=== PATIENT | male | born 1935 | race Caucasian/White ===

== ENCOUNTER → 2019-04-16 10:33 | Outpatient (CLI) | payer OTHER, SELFPAY ==
--- NOTE | 2019-04-16 | DI.MRI.S_ITS ---
PROCEDURE: MR SHOULDER LT WO CON INDICATIONS: shoulder pain TECHNIQUE: Noncontrast oblique coronal T2 fast spin echo with fat saturation, oblique sagittal T1 spin echo and T2 fast spin echo with fat saturation, axial T1 spin echo and T2 fast spin echo with fat saturation through the shoulder. COMPARISON: [facility] [place], CR, XR SHOULDER 2+ VIEWS LEFT, 04/06/2019, 9:39. FINDINGS: Image quality: Diagnostic. Rotator cuff: There is a moderate size full thickness tear present involving the distal supraspinatus tendon that involves the majority of the tendon. This tear measures at least 2.6 cm in transverse dimension with retraction of the torn tendon fragments by up to 1.8 cm. A small amount (approximately 6 mm) of the tendon remains attached to the greater tuberosity. A few intact fibers of the posterior distal supraspinatus tendon are present. There is thickening and increased signal identified involving the infraspinatus tendon. The teres minor tendon is intact. There is thickening and increased signal evident along the articular surface of the distal subscapularis tendon. Mild muscle atrophy is present involving the supraspinatus, infraspinatus, and subscapularis muscles. No significant teres minor muscle atrophy is appreciated. Bones and bursae: No acute fracture, dislocation, or suspicious osseous lesion is identified involving the osseous structures of the left shoulder. There are mild to moderate degenerative changes of the glenohumeral joint. There is a large glenohumeral joint effusion that communicates with the subacromial subdeltoid bursa. Severe degenerative changes of the acromio clavicular joint are present. No definite intra-articular joint bodies of the glenohumeral joint are appreciated. Capsule and soft tissues: Evaluation of the labrum and glenohumeral ligaments is suboptimal without intra-articular contrast. There likely is a small posterosuperior labral tear extending from the 12 o'clock position to the 2 o'clock position. Additional areas of labral heterogeneity are present. The long head of the biceps tendon is normally positioned within the bicipital groove. There is thickening and increased signal involving the intra-articular portion of this tendon as it passes over the humeral head. Evaluation of the glenohumeral ligaments is suboptimal. No definite complete tears are evident. There is slight edema about the inferior glenohumeral ligament. IMPRESSION: 1. Moderate size full thickness supraspinatus tendon tear. 2. Low-grade partial-thickness tearing and moderate tendinopathy of the subscapularis and infraspinatus tendons. 3. Mild atrophy of the rotator cuff muscles. 4. Small posterosuperior labral tear. 5. Moderate tendinopathy with possible intrasubstance partial-thickness tearing involving the long head of the biceps tendon. 6. Probable inferior glenohumeral ligament sprain. 7. Severe degenerative changes of the acromioclavicular joint. 8. Mild to moderate degenerative changes of the glenohumeral joint. 9. Prominent glenohumeral joint effusion. Dictated by: Jesus Pat M.D. on 04/18/2019 at 9:28 Approved by: Jesus Pat M.D. on 04/18/2019 at 9:33
== END ==
PROVIDERS: Visit Provider Orthopaedic Surgery
DX: M25.512 Pain in left shoulder (principal); M75.122 Complete rotator cuff tear or rupture of left shoulder, not specified as traumatic; M62.512 Muscle wasting and atrophy, not elsewhere classified, left shoulder; S43.492A Other sprain of left shoulder joint, initial encounter; M19.012 Primary osteoarthritis, left shoulder; M25.412 Effusion, left shoulder
CPT/HCPCS: 73221

== ENCOUNTER → 2020-10-04 09:45 | Outpatient (CLI) | payer MEDICARE, SELFPAY ==
[2020-10-04] MEDS: COVID-19 VACC, Ad26(JANSSEN)/PF 0.5 ML IM (09:52)
== END ==
PROVIDERS: Visit Provider Internal Medicine
DX: Z23 Encounter for immunization (principal)
CPT/HCPCS: 0031A; 91303

== ENCOUNTER → 2020-10-05 13:49 | Outpatient (CLI) | payer MEDICARE, SELFPAY ==
[2020-10-05 14:09] LABS: Add Manual Diff / Slide Review NO; Basophils Absolute Auto 0 /uL (0-100); Basophils Percent Auto 0.6 % (0-2); Eosinophils Absolute Auto 100 /uL (0-450); Eosinophils Percent Auto 4.2 % (2-4); Hematocrit 40.6 % (41-53); Hemoglobin 13.9 g/dL (13.5-17.5); Lymphocytes Absolute Auto 700 /uL (1100-4500); Lymphocytes Percent Auto 19.1 % (25-40); Mean Corpuscular HGB Conc 34.3 % (30-36); Mean Corpuscular Hemoglobin 31.9 PG (26-34); Monocytes Absolute Auto 600 /uL (0-900); Monocytes Percent Auto 15.9 % (3-14); Neutrophils Absolute Auto 2100 /uL (1500-7000); Neutrophils Percent Auto 60.2 % (50-75); Platelet Count 191 X10^3/uL (150-400); Red Blood Cell Count 4.37 X10^6/uL (4.5-5.9); Red Cell Distribution Width 13.5 % (11.6-14.8); White Blood Cell Count 3.6 X10^3/uL (4.5-11.0)
[2020-10-05 14:21] LABS: Alanine Aminotransferase 18 IU/L (<50); Albumin 4.2 g/dL (3.5-5.0); Albumin Globulin Ratio 1.7 (1.0-2.8); Alkaline Phosphatase 55 U/L (38-126); Aspartate Aminotransferase 23 IU/L (17-59); BUN Creatinine Ratio 20.5 (6-22); Bilirubin Total 0.5 mg/dL (0.2-1.3); Blood Urea Nitrogen 17 mg/dL (9-20); Calcium 9.6 mg/dL (8.4-10.2); Carbon Dioxide 27 mmol/L (22-32); Chloride 104 mmol/L (98-107); Estimated Glomerular Filt Rate > 60.0 mL/min (>60); Globulin 2.5 g/dL (1.7-4.1); Glucose 94 mg/dL (80-110); HEMOLYSIS < 15 (0-50); Magnesium 1.9 mg/dL (1.6-2.3); Potassium 3.9 mmol/L (3.4-5.1); Sodium 138 mmol/L (137-145); Total Protein 6.7 g/dL (6.3-8.2)
[2020-10-05 14:51] LABS: TSH w/ Reflex to FT4 1.04 uIU/mL (0.47-4.68)
== END ==
PROVIDERS: Referring Provider Internal Medicine; Visit Provider Internal Medicine
DX: I10 Essential (primary) hypertension (principal); R00.2 Palpitations
CPT/HCPCS: 36415; 80053; 83735; 84443; 85025

== ENCOUNTER 2020-10-21 10:23 | Emergency (ER) | payer MEDICARE, SELFPAY ==
--- NOTE | 2020-10-21 10:40 | DI.RAD.S_ITS ---
PROCEDURE: XR FINGER LT MIN 2V INDICATIONS: table saw accident TECHNIQUE: AP hand, 2 views of the left finger(s) acquired. COMPARISON: None. FINDINGS: Bones: Partial amputation of the distal phalanx of the thumb with associated soft tissue laceration and swelling, edema. 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 Possible punctate radiopaque debris or foreign bodies although recommend clinical correlation. Diffuse interphalangeal degenerative joint disease. IMPRESSION: Partial amputation of the distal phalanx of the thumb. Associated soft tissue swelling. Possible punctate radiopaque debris/foreign bodies although recommend clinical correlation. Dictated by: Juan Zuniga M.D. on 10/21/2020 at 11:02 Approved by: Juan Zuniga M.D. on 10/21/2020 at 11:04
[2020-10-21 10:42] VITALS: BP 143/104; PULSE 85; RESP 24; TEMP 37.1; O2SAT 98; BMI 26.5
--- NOTE | 2020-10-21 10:44 | ED_ITS ---
HPI - Wound/Laceration General Chief Complaint: Trauma Stated Complaint: left thumb wound from table saw Time Seen by Provider: 10/21/20 10:30 Source: patient Mode of arrival: Ambulatory Limitations: no limitations History of Present Illness HPI narrative: Patient is an 85-year-old male who is here for evaluation of an injury that he sustained to his left thumb. He is right-hand dominant. He states he was making a picture frame when he cut his thumb on the table saw. He placed the tip of the thumb in ice and came to the emergency department. He did cover with a bandage. He states that his last tetanus shot was within the past 10 years. Related Data Previous Rx's Medication Instructions Recorded cephalexin 500 mg PO QID 7 Days #28 cap 10/21/20 hydrocodone-acetaminophen 1 tab PO Q4-6H PRN #7 tab 10/21/20 Allergies Allergy/AdvReac Type Severity Reaction Status Date / Time No Known Drug Allergies Allergy Verified 10/21/20 10:49 Review of Systems Constitutional Constitutional: Denies headache(s) Eyes Eyes: Denies change in vision ENT Ears, Nose, Mouth, and Throat: Denies headache(s) and Denies sore throat Cardiovascular Cardiovascular: Denies chest pain and Denies dyspnea Respiratory Respiratory: Denies dyspnea Gastrointestinal Gastrointestinal: Denies abdominal pain Musculoskeletal Comments: Left thumb pain Integumentary/Breasts Comments: Cut to left thumb Neurologic Neurologic: Denies headache(s) Comments: Some tingling to the tip of the left thumb Hematologic/Lymphatic On Anticoagulants: No Allergic/Immunologic Allergic/Immunologic: Denies urticaria Patient History Medical History Hypertension Social History Smoking Status: Former smoker Exam Initial Vital Signs Initial Vital Signs: Vital Signs Temperature 98.8 F 10/21/20 10:42 Pulse Rate 85 10/21/20 10:42 Respiratory Rate 24 10/21/20 10:42 Blood Pressure 143/104 H 10/21/20 10:42 Pulse Oximetry 98 10/21/20 10:42 Const General: cooperative, healthy appearing and comfortable Limitations: mental status not altered HENMT Head: normal to inspection and normocephalic Eyes General: appearance normal, both eyes and all related structures Resp Effort & Inspection: normal respiratory effort Cardio Pulses: radial pulses present on the left GI Palpation: soft Skin Other: Patient with avulsion of the skin on the dorsum of the left thumb. It starts just distal to the IP joint and does extend past the tip of the thumb. The entire thumb nail is avulsed. The nail bed is also vault. There is no bone exposure. Neuro Other: Patient does have sensation to the pad of the left thumb Extrem Other: Patient can flex and extend at the IP joint to the left thumb Psych Appearance: grossly normal and well kempt Procedures Orthopedic Splinting/Casting Injury #1: Side: left Upper Extremity Injury Location: finger Upper Extremity Immobilizer: aluminum form splint Post splinting neuro exam: no change Post splinting vascular exam: no change Placed by: Provider Course Orders Ordered: ED Orders 10/21/20 10:40 XR finger LT min 2V Stat Vital Signs Vital signs: Vital Signs - 8 hr 10/21/20 10:42 10/21/20 10:51 10/21/20 10:52 Temperature 98.8 F Pulse Rate 85 83 83 Respiratory Rate 24 Blood Pressure 143/104 H 175/87 H 171/88 H Pulse Oximetry 98 98 98 10/21/20 11:00 10/21/20 11:30 10/21/20 12:03 Temperature Pulse Rate 79 78 74 Respiratory Rate 12 17 14 Blood Pressure 164/88 H 156/87 H 148/89 H Pulse Oximetry 96 96 97 MDM - Wound/Laceration Imaging Data Extremity x-ray #1: Radiologist's Impression: [address] [id number] ReportSigned Patient: Garrison Guardado DeanMR#: [id number]: [id number]:[id number]/Sex: 85 / MDate of Service: 10/21/20Loc: EDAccession Number: [id number] Procedure: XR finger LT min 2V Ordering Provider: Jefe Moise D.O. PROCEDURE: XR FINGER LT MIN 2V INDICATIONS: table saw accident TECHNIQUE: AP hand, 2 views of the left finger(s) acquired. COMPARISON: None. FINDINGS: Bones: Partial amputation of the distal phalanx of the thumb with associated soft tissue laceration and swelling, edema. 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 Possible punctate radiopaque debris or foreign bodies although recommend clinical correlation. Diffuse interphalangeal degenerative joint disease. IMPRESSION: Partial amputation of the distal phalanx of the thumb. Associated soft tissue swelling. Possible punctate radiopaque debris/foreign bodies although recommend clinical correlation. Dictated by: Juan Zuniga M.D. on 10/21/2020 at 11:02 Approved by: Juan Zuniga M.D. on 10/21/2020 at 11:04 [facility] Narrative Medical decision making narrative: Modified trauma called secondary to the table saw injury. He is missing the dorsum of his left thumb just distal to the IP joint to the tip. X-ray does show that he did cut some of the bone. There is no bone exposed. Unfortunately the wound is not amenable to suturing here in the ER. Was covered with Vaseline gauze. He was placed in a splint for soft tissue rest. He was informed that this would heal but he would have an abnormal looking thumb compared to the right and he will no longer have a thumb nail on that side. He was given the information to follow-up with orthopedics. Will start on antibiotics as well. He was given return precautions and follow-up instructions. He expressed understanding and agreement. Discharge Plan Departure Patient Disposition: Home Clinical Impression: Traumatic amputation of tip of left thumb Instructions: DI for Traumatic Finger or Hand Amputation Activity Restrictions/Additional Instructions: I do recommend that tomorrow you contact the [facility] group at [phone]. Until then I recommend that you keep the splint and bandage on. I recommend that you contact your primary doctor for follow-up. Take the antibiotics as directed. Return to the emergency department for any new or worsening symptoms Prescriptions: New cephalexin 500 mg capsule 500 mg PO QID 7 Days Qty: 28 RF: 0 hydrocodone-acetaminophen 5-325 mg tablet 1 tab PO Q4-6H PRN (Reason: pain) Qty: 7 RF: 0 Referrals: Jamel Joy MD [Primary Care Provider] -
[2020-10-21 10:51] VITALS: BP 175/87; PULSE 83; O2SAT 98
[2020-10-21 10:52] VITALS: BP 171/88; PULSE 83; O2SAT 98
[2020-10-21 11:00] VITALS: BP 164/88; PULSE 79; RESP 12; O2SAT 96
[2020-10-21 11:30] VITALS: BP 156/87; PULSE 78; RESP 17; O2SAT 96
--- NOTE | 2020-10-21 11:38 | PC.NURSE ---
patient was using table saw and partially amputated his left thumb. The nail bed and nail are missing and there is a 3 cm circular wound involving the distal tip of his distal phalange. The wound is hemostatic and was wrapped with xeroform gauze, 4x4 and roll gauze with tape. There is a splint under his finger to immobilize his thumb.
[2020-10-21 12:03] VITALS: BP 148/89; PULSE 74; RESP 14; O2SAT 97
== END 2020-10-21 12:06 | disposition home or self-care (01) ==
PROVIDERS: Emergency Provider Emergency Medicine; PCP Internal Medicine
DX: S68.012A Complete traumatic metacarpophalangeal amputation of left thumb, initial encounter (principal); W29.3XXA Contact with powered garden and outdoor hand tools and machinery, initial encounter
CPT/HCPCS: 73140; 99283

== ENCOUNTER → 2021-10-01 15:03 | Outpatient (CLI) | payer MEDICARE, SELFPAY ==
--- NOTE | 2021-10-01 15:06 | DI.RAD.S_ITS ---
PROCEDURE: XR CHEST 2V INDICATIONS: RT RIB PAIN, CHEST TECHNIQUE: 2 views of the chest were acquired. COMPARISON: None. FINDINGS: Surgical changes and devices: None. Lungs and pleura: Lungs are clear. No pleural effusions or pneumothorax. Mediastinum: Mediastinal contours are normal. Heart size is normal. Bones and chest wall: No suspicious bony abnormalities. Soft tissues appear unremarkable. IMPRESSION: No acute cardiopulmonary findings. No fracture or pneumothorax. Dictated by: Sawyer Renee M.D. on 10/01/2021 at 15:58 Approved by: Sawyer Renee M.D. on 10/01/2021 at 16:18
== END ==
PROVIDERS: PCP Internal Medicine; Referring Provider Family Medicine; Visit Provider Family Medicine
DX: R07.81 Pleurodynia (principal)
CPT/HCPCS: 71046

== ENCOUNTER → 2021-11-21 07:46 | Outpatient (CLI) | payer MEDICARE, SELFPAY ==
--- NOTE | 2021-11-21 | DI.ECHO.S_ITS ---
[facility]---------+ [facility] +---------+ : : [address] : : : : [id number] : : : : Phone: [phone]+ Echocardiogram Report + + :Name: DIANE GONZALEZ Study Date: 11/21/2021 Height: 70 in : :[facility] ReadingLocation: Weight: 185 lb : : Gender: Male BSA: 2.0 m2 : :: 1935 Age: 86 yrs BP: 149/82 mmHg: :Reason For Study: Murmur : :Ordering Physician: CAROL, : :EDUARDO Barriga Performed By: Panfilo Wise : :Referring: EDUARDO MEDINA : + + Interpretation Summary 1) Normal left ventricular thickness, size, wall motion, and systolic function (EF 60-65%). 2) Normal right ventricular size and function. 3) No significant valvular abnormalities. 4) No prior Echo available for comparison. Procedure: A two-dimensional transthoracic echocardiogram with color flow and Doppler was performed. The study quality was technically adequate. There is no prior echocardiogram noted for this patient. Left Ventricle: The left ventricle is normal in size and wall thickness. Left ventricular systolic function is normal. The ejection fraction is estimated to be 60-65%. There are no focal wall motion abnormalities. Diastolic parameters suggest a relaxation abnormality of the left ventricle, consistent with probable normal filling pressures. Right Ventricle: The right ventricle is normal in size and function. Atria: Both atria are normal in size. The interatrial septum grossly appears intact with no obvious evidence for an atrial septal defect. Mitral Valve: There is mild mitral annular calcification. There is trace mitral regurgitation. Aortic Valve: The aortic valve is normal in structure and function. There is no aortic valve stenosis. There is trace aortic regurgitation. Tricuspid Valve: The tricuspid valve is normal in structure and function. There is a trace or physiologic amount of tricuspid regurgitation. Pulmonary artery pressures cannot be estimated because of the lack of a measurable TR jet velocity. Pulmonic Valve: The pulmonic valve is normal in structure and function. There is no pulmonic valvular regurgitation. Great Vessels: The aortic root is normal size. The dimensions of the ascending aorta are normal. The IVC is of normal diameter and collapses greater than 50% with a sniff. This suggests a low right atrial pressure of 3 mm Hg. Pericardium/ Pleura There is no pericardial effusion. There is no pleural effusion. MMode/2D Measurements & Calculations LVIDd: 4.3 cm LVOT diam: 2.1 cm LVIDs: 3.0 cm Ao root diam: 3.5 cm FS: 30.2 % asc Aorta Diam: 3.4 cm IVSd: 1.1 cm LVPWd: 0.90 cm LV rowell. diameter/BSA (cm/m^2): 2.1 LV sys. diameter/BSA (cm/m^2): 1.5 LA dimension: 2.9 cm RA long axis: 6.0 cm LA A2 area: 22.6 cm2 IVC diam: 1.7 cm LA A4 area: 20.5 cm2 LA length (vol): 5.8 cm LA vol: 67.8 ml LA vol index: 33.6 ml/m2 TAPSE_phl: 2.8 cm Doppler Measurements & Calculations Ao V2 max: 134.0 cm/sec LVOT Max Mike: 137.0 cm/sec Ao V2 mean: 97.1 cm/sec LV V1 max P.5 mmHg Ao max P.0 mmHg LV V1 VTI: 31.3 cm Ao mean P.0 mmHg JOZEF(I,D): 3.7 cm2 Ao V2 VTI: 29.5 cm JOZEF(V,D): 3.5 cm2 sev ratio: 1.1 JOZEF indexed to BSA (cm^2/m^2): 1.8 MV E max mike: 102.0 cm/sec SV(LVOT): 108.4 ml MV A max mike: 116.0 cm/sec MV E/A: 0.88 Med Peak E' Mike: 8.5 cm/sec E/E' med: 12.0 Lat Peak E' Mike: 7.5 cm/sec E/E' lat: 13.5 E/e' average: 12.8 MV dec time: 0.21 sec AV VR_phl: 1.0 MV P1/2t-pr_phl: 62.0 msec JOZEF(VTI)/BSA_phl: 1.8 Reading Physician:01:12 PM
== END ==
PROVIDERS: PCP Internal Medicine; Referring Provider Internal Medicine; Visit Provider Internal Medicine
DX: R01.1 Cardiac murmur, unspecified (principal)
CPT/HCPCS: 93306

== ENCOUNTER 2021-12-27 17:22 | Emergency (ER) | payer MEDICARE, SELFPAY ==
[2021-12-27 17:42] VITALS: BP 175/89; PULSE 100; RESP 18; TEMP 36.7; O2SAT 99; BMI 29.2
[2021-12-27 17:55] VITALS: PULSE 104; O2SAT 99
[2021-12-27 18:00] VITALS: BP 176/89; PULSE 99; O2SAT 99
--- NOTE | 2021-12-27 18:20 | ED.GENADULT ---
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 He also has a significant love of fishing [place] and while using Phenergan and Sudafed seeing found that he was unable to void. He has gone over 48 hours without voiding and is in significant pain. Comes in for further evaluation Related Data Previous Rx's Medication Instructions Recorded hydrocodone 5 mg-acetaminophen 325 1 tab PO Q4-6H PRN pain #7 tabs 10/21/20 mg tablet ondansetron 4 mg disintegrating 4 mg PO Q8H PRN sea sickness #20 12/27/21 tablet tabs Allergies Allergy/AdvReac Type Severity Reaction Status Date / Time No Known Drug Allergies Allergy Verified 10/21/20 10:49 Review of Systems Review of Systems Narrative: Remainder of complete review of systems is otherwise unremarkable except for that included in the HPI. Patient History Medical History (Updated 12/27/21 @ 19:10 by Jonelle Conn MD) BPH (benign prostatic hyperplasia) Hypertension Social History Smoking Status: Former smoker Smoking Status: Former smoker alcohol intake frequency: 0-2 drinks per day Substance Use Type: does not use Exam Initial Vital Signs Initial Vital Signs: Vital Signs Temperature 98.1 F 12/27/21 17:42 Pulse Rate 100 H 12/27/21 17:42 Respiratory Rate 18 12/27/21 17:42 Blood Pressure 175/89 H 12/27/21 17:42 Pulse Oximetry 99 12/27/21 17:42 Oxygen Delivery Method 12/27/21 17:42 General: Alert appropriate in no acute distress Respiratory: Able to speak in full sentences, no obvious respiratory distress Skin: No obvious rashes, warm and dry Neurologic: Grossly intact no obvious asymmetries or abnormalities Psych: appropriate insight and affect, cooperative Bryan catheter is placed by nursing staff without complication with 3 L immediately drained. Pale yellow no blood. Significant relief of pain post drainage. Course Orders Ordered: ED Orders 12/27/21 18:05 Urinalysis and Microscopic Stat Discontinued Medications Lidocaine HCl (Lidocaine 2% (Glydo) 6 Ml Gel) 6 ml TOP NOW ONE Stop: 12/27/21 17:51 Ondansetron HCl (Ondansetron 4 Mg Odt) 4 mg SL NOW ONE Stop: 12/27/21 18:53 Last Admin: 12/27/21 19:04 Dose: 4 mg Tamsulosin HCl (Tamsulosin 0.4 Mg Capsule) 0.4 mg PO NOW ONE Stop: 12/27/21 18:59 Last Admin: 12/27/21 19:04 Dose: 0.4 mg Vital Signs Vital signs: Vital Signs - 8 hr 12/27/21 17:42 12/27/21 17:55 12/27/21 18:00 Temperature 98.1 F Pulse Rate 100 H 104 H Respiratory Rate 18 Blood Pressure 175/89 H 176/89 H Pulse Oximetry 99 99 Oxygen Delivery Method Room Air 12/27/21 18:00 12/27/21 18:30 12/27/21 18:30 Temperature Pulse Rate 99 H 96 H Respiratory Rate Blood Pressure 145/95 H Pulse Oximetry 99 97 Oxygen Delivery Method 12/27/21 19:01 12/27/21 19:02 12/27/21 19:02 Temperature Pulse Rate 100 H Respiratory Rate Blood Pressure 114/79 Pulse Oximetry 97 98 Oxygen Delivery Method Medical Decision Making Lab Data Labs: Lab Results 12/27/21 Range/Units 18:05 Urine Color Yellow Urine Appearance Clear Urine pH 5.0 (4.5-8.0) Ur Specific [place] 1.010 (1.000-1.035) Urine Protein Negative (Negative) Urine Glucose (UA) Trace H (Negative) g/dL Urine Ketones Trace H (NEGATIVE) Urine Occult Blood Negative (Negative) Urine Nitrate Negative (Negative) Urine Bilirubin Negative (NEGATIVE) Urine Urobilinogen 0.2 (0.2) E.U./dL Ur Leukocyte Esterase Negative (NEGATIVE) Urine RBC 1-5/hpf (0-5/HPF) Urine WBC 0-1/hpf (0-5/HPF) Urine Bacteria None seen (None) Ur Culture Indicated? Cult not indicated MDM Narrative Medical decision making narrative: 86-year-old gentleman with already worsening bladder outlet obstruction symptoms with exacerbation using Sudafed for seasickness. Bryan catheter is placed without difficulty. Recommended Zofran to help with sea sickness and counseled against any [id number] antihistamines or Sudafed as this does have urinary retention as complications. Also advised him to avoid scopolamine patches should that be suggested for him. He does have essential hypertension and has not taken his medications yet today. Blood pressure was dramatically elevated on arrival in significantly improved once his bladder was drained. Recommended that he start the Flomax that has been prescribed and is available for pickup and suggesting taking the Bryan catheter out in approximately 4 days. Encouraged him to return to the ER if he has worsening difficulties. Bryan catheter instructions and a leg bag are provided by nursing staff. Questions are answered he is safe for home discharge Discharge Plan Departure Patient Disposition: Home Clinical Impression: Acute retention of urine Instructions: DI for Urinary Retention in Men Activity Restrictions/Additional Instructions: Thank you for coming in today While I am glad you had a fabulous fishing trip and cot some salmon, I believe the Sudafed that you are using to avoid seasickness cause your acute urinary retention. It does look like you have been having difficulties with urinary retention already and I would recommend filling the prescription for tamsulosin that your primary care doctor has sent to [facility]. I have given you your 1st dose of this in the emergency room today You can use the leg bag with your Bryan catheter during the day and put the full bag on at night. You may be pleasantly surprised how delightful it is to sleep a full night and not have to get up to go to the bathroom! When your bladder has been distended by 3 L of urine, it is going to take a couple of days to shrink back down to normal. I would recommend that you leave the catheter in until December 31 or beyond. I would encourage you to schedule an appointment with your primary care doctor, or return to the emergency department. If you do want to take it out yourself make sure the balloon is fully deflated (if it hurts to pull on the catheter, do not pull). If you have trouble going to the bathroom again, you will need to return to the emergency department for another catheter. Regarding sea sickness, no going to give you a prescription for Zofran. This helps with nausea and will not affect her prostate. The Phenergan that you have is also helpful however it can make you sleepy. You need to avoid Sudafed as well as scopolamine if anyone suggest that as an option. Any [id number]-[id number] cold or sinus medications are going to cause urinary problems for you I hope the rest of your fishing vacations are equally successful. Prescriptions: New ondansetron 4 mg tablet,disintegrating 4 mg PO Q8H PRN (Reason: sea sickness) Qty: 20 1RF No Action hydrocodone-acetaminophen 5-325 mg tablet 1 tab PO Q4-6H PRN (Reason: pain) Qty: 7 0RF Referrals: Fausto Carmichael MD [Primary Care Provider] -
[2021-12-27 18:26] LABS: Appearance Urine UA CLEAR; Bilirubin Urine UA NEGATIVE (NEGATIVE); Color Urine UA YELLOW; Glucose Urine UA TRACE g/dL (Negative); Ketones Urine UA TRACE (NEGATIVE); Leukocyte Esterase Urine UA NEGATIVE (NEGATIVE); Nitrite Urine UA NEGATIVE (Negative); Occult Blood Urine UA NEGATIVE (Negative); Protein Urine UA NEGATIVE (Negative); Urobilinogen Urine UA 0.2 E.U./dL (0.2)
[2021-12-27 18:30] VITALS: BP 145/95; PULSE 96; O2SAT 97
[2021-12-27 18:36] LABS: Bacteria Urine None Seen; RBC Urine 1-5/HPF (0-5/HPF); WBC Urine 0-1/HPF (0-5/HPF)
[2021-12-27 18:37] LABS: Culture Indicated Urine Cult Not Indicated
[2021-12-27 19:01] VITALS: O2SAT 97
[2021-12-27 19:02] VITALS: BP 114/79; PULSE 100; O2SAT 98
[2021-12-27] MEDS: ONDANSETRON 4 MG ODT SL (19:04)
[2021-12-27] MEDS: TAMSULOSIN 0.4 MG CAPSULE PO (19:04)
--- NOTE | 2021-12-27 19:11 | PC.NURSE ---
Pt reports not being able to urinate for two days. Unable to get comfortable.
== END 2021-12-27 19:14 | disposition home or self-care (01) ==
PROVIDERS: Emergency Provider Emergency Medicine; PCP Internal Medicine; Referring Provider Family Medicine
DX: R33.8 Other retention of urine (principal)
CPT/HCPCS: 51798; 81001; 99283; 99284

== ENCOUNTER 2021-12-31 09:57 | Emergency (ER) | payer MEDICARE, SELFPAY ==
[2021-12-31 11:47] VITALS: BP 156/78; PULSE 66; RESP 12; TEMP 36.6; O2SAT 98
--- NOTE | 2021-12-31 12:01 | PC.NURSE ---
Verbal from Dr [place] to remove cath. Patient provided urinal and placed back in lobby until he can urinate on his own
--- NOTE | 2021-12-31 13:15 | PC.NURSE ---
Called for patient. No answer in lobby
--- NOTE | 2021-12-31 13:36 | PC.NURSE ---
1200- late entry. Called for patient in both lobbies unable to locate patient
== END 2021-12-31 13:36 | disposition left against medical advice (07) ==
PROVIDERS: Emergency Provider Emergency Medicine; PCP Internal Medicine
CPT/HCPCS: 99282

== ENCOUNTER 2021-12-31 22:49 | Emergency (ER) | payer MEDICARE, SELFPAY ==
[2021-12-31 22:58] VITALS: BP 173/92; PULSE 98; RESP 16; TEMP 36.3; O2SAT 99; BMI 28.3
--- NOTE | 2021-12-31 23:10 | ED.MALEGU ---
HPI - Male Genitourinary General Chief complaint: Urogenital-Male Stated complaint: need urinary cath Time Seen by Provider: 12/31/21 22:53 Mode of arrival: Family Vehicle History of Present Illness HPI Narrative: 86-year-old male former smoker with known BPH presents with inability to urinate and lower abdominal pain. He had been seen and evaluated for the same a few days ago and had been diagnosed with urinary retention, a Dukes catheter had been placed and he was encouraged to follow up. It was thought that the urinary retention was likely due to a combination medications including Phenergan and Sudafed that were recommended to treat seasickness while on a recent fishing trip. Per his discharge instructions he returned earlier today and requested the Dukes catheter be removed. It was requested that he stay to be observed and and sure his ability to urinate but patient preferred to leave despite knowing the risks. Over the course of the evening he was unable to urinate and started developing pain at which point he came back to see us. He has no fever or chills and denies any chest pain or shortness of breath. Related Data Previous Rx's Medication Instructions Recorded hydrocodone 5 mg-acetaminophen 325 1 tab PO Q4-6H PRN pain #7 tabs 10/21/ mg tablet ondansetron 4 mg disintegrating 4 mg PO Q8H PRN sea sickness #20 12/27/21 tablet tabs Allergies Allergy/AdvReac Type Severity Reaction Status Date / Time No Known Drug Allergies Allergy Verified 12/31/21 23:00 Review of Systems Review of Systems Narrative: GENERAL: Denies chills, fatigue, malaise, fever, sweats. HEENT: Denies sinus pain, ear pain, sore throat, difficulty swallowing, dizziness. RESPIRATORY: Denies dyspnea, cough, wheezing, hemoptysis, sputum. CARDIOVASCULAR: Denies chest pain, palpitations, orthopnea, edema, GASTROINTESTINAL: See HPI : See HPI MUSCULOSKELETAL: denies weakness, joint pain, or bony pain SKIN: Denies rash, skin lesions, or other NEUROLOGIC: Denies weakness, headache, numbness, change in speech, confusion, seizures, incoordination. PSYCHIATRIC: No concerning psychosocial issues. 12 point review of systems is negative except for those stated above Patient History Medical History BPH (benign prostatic hyperplasia) Hypertension Social History Smoking Status: Former smoker Smoking Status: Former smoker alcohol intake frequency: 0-2 drinks per day Substance Use Type: does not use Exam Narrative Exam Narrative: GEN: AOx3 and in mild distress EYES: Pupils are equal, round, and reactive to light and accommodation. Extraoccular muscles are intact bilaterally. There is no subconjunctival hemorrhage or exudate. CHEST: Lungs are clear to auscultation bilaterally and free of wheezes, rales, or rhonchi. Heart rate is regular rhythm, there are no murmurs, clicks, rubs, or gallops. There is no chest wall tenderness. ABD: Abdomen firm and distended overlying the bladder. There is no guarding or rebound. Bowel sounds are normal in all 4 quadrants. There is no mass or organomegaly. EXT: Full painless ROM of all extremities with no loss of sensation or strength. SKIN: Warm, pink, and dry. No erythema or rash Initial Vital Signs Initial Vital Signs: Vital Signs Temperature 97.4 F L 12/31/21 22:58 Pulse Rate 98 H 12/31/21 22:58 Respiratory Rate 16 12/31/21 22:58 Blood Pressure 173/92 H 12/31/21 22:58 Pulse Oximetry 99 12/31/21 22:58 Oxygen Delivery Method 12/31/21 22:58 Course Orders Ordered: Discontinued Medications Lidocaine HCl (Lidocaine 2% (Glydo) 6 Ml Gel) 6 ml TOP NOW ONE Stop: 12/31/21 22:54 Last Admin: 12/31/21 23:16 Dose: 6 ml Documented By: EB Vital Signs Vital signs: Vital Signs - 8 hr 12/31/21 22:58 Temperature 97.4 F L Pulse Rate 98 H Respiratory Rate 16 Blood Pressure 173/92 H Pulse Oximetry 99 Oxygen Delivery Method Room Air MDM - Male Genitourinary MDM Narrative Medical decision making narrative: bladder scan notes >999mL post void residual. Nursing placed 16Fr dukes catheter and patient immediately had over 1L of urine out and then complete resolution of painful symptoms. Return precautions discussed and questions answered to his apparent satisfaction. Discharge Plan Departure Patient Disposition: Home Clinical Impression: Acute retention of urine Instructions: DI for Urinary Retention in Men Activity Restrictions/Additional Instructions: *You have been diagnosed with [acute urinary retention, failed outpatient trial] *What to do: *Please continue to take your regular medications as directed. [ ] New medication prescriptions sent to your pharmacy: [ ] [ ] New medication written as a paper prescription [ ] No new medications given *Please follow up with Dr. Gutierrez or Dr. High at the urology office, call tomorrow morning and let them know that you have been seen in the emergency department twice for urinary retention and we would like you seen in follow-up. *Return to Emergency Department if you should have any new, worsening or concerning symptoms, such as [fever greater than 101 F, shaking chills, worsening pain, persistent vomiting or other bothersome symptoms] Prescriptions: No Action hydrocodone-acetaminophen 5-325 mg tablet 1 tab PO Q4-6H PRN (Reason: pain) Qty: 7 0RF ondansetron 4 mg tablet,disintegrating 4 mg PO Q8H PRN (Reason: sea sickness) Qty: 20 1RF Referrals: Fausto Carmichael MD [Primary Care Provider] - Apolinar Gutierrez MD [Physician] - Visit Report Forms: Patient Portal/API
[2021-12-31] MEDS: LIDOCAINE 2% (GLYDO) 6 ML GEL TOP (23:16)
== END 2021-12-31 23:46 | disposition home or self-care (01) ==
PROVIDERS: Emergency Provider Emergency Medicine; PCP Internal Medicine
DX: R33.8 Other retention of urine (principal)
CPT/HCPCS: 51798; 99283

== ENCOUNTER → 2022-04-03 08:43 | Outpatient (CLI) | payer MEDICARE, SELFPAY ==
[2022-04-03 11:28] LABS: Prostate Specific Antigen 1.76 ng/mL (0.10-4.00)
== END ==
PROVIDERS: PCP Internal Medicine; Referring Provider Specialist; Visit Provider Specialist
DX: N40.1 Benign prostatic hyperplasia with lower urinary tract symptoms (principal); N13.8 Other obstructive and reflux uropathy
CPT/HCPCS: 36415; 84153

== ENCOUNTER → 2022-04-10 10:01 | Outpatient (CLI) | payer MEDICARE, SELFPAY | PROVIDERS: PCP Internal Medicine; Visit Provider Specialist | DX: N40.1 Benign prostatic hyperplasia with lower urinary tract symptoms (principal); N13.8 Other obstructive and reflux uropathy; R33.9 Retention of urine, unspecified | CPT/HCPCS: 52000; 76872; 81002; 87077; 87086; 87186; 99215 ==

== ENCOUNTER → 2022-10-27 10:25 | Outpatient (CLI) | payer MEDICARE, SELFPAY ==
[2022-10-27 10:53] LABS: Hematocrit 40.9 % (41-53); Hemoglobin 14.3 g/dL (13.5-17.5); Mean Corpuscular Hemoglobin 32.2 PG (26-34); Platelet Count 193 X10^3/uL (150-400); Red Blood Cell Count 4.45 X10^6/uL (4.5-5.9); Red Cell Distribution Width 12.7 % (11.6-14.8); White Blood Cell Count 4.2 X10^3/uL (4.5-11.0)
[2022-10-27 10:58] LABS: Alanine Aminotransferase 20 IU/L (<50); Albumin 4.5 g/dL (3.5-5.0); Albumin Globulin Ratio 1.7 (1.0-2.8); Alkaline Phosphatase 54 U/L (38-126); Aspartate Aminotransferase 22 IU/L (17-59); BUN Creatinine Ratio 23.7 (6-22); Blood Urea Nitrogen 18 mg/dL (9-20); Calcium 9.1 mg/dL (8.4-10.2); Carbon Dioxide 25 mmol/L (22-32); Chloride 104 mmol/L (98-107); Cholesterol 166 mg/dL (140-199); Estimated Glomerular Filt Rate > 60 mL/min (>60); Globulin 2.6 g/dL (1.7-4.1); Glucose 108 mg/dL (80-110); HDL Cholesterol 104 mg/dL (40-60); HEMOLYSIS < 15 (0-50); LDL Cholesterol Calculated 51 mg/dL (<100); Potassium 4.3 mmol/L (3.4-5.1); Sodium 135 mmol/L (137-145); Total Protein 7.1 g/dL (6.3-8.2); Triglycerides 55 mg/dL (35-150)
[2022-10-27 11:49] LABS: TSH w/ Reflex to FT4 1.03 uIU/mL (0.47-4.68)
== END ==
PROVIDERS: PCP Internal Medicine; Referring Provider Internal Medicine; Visit Provider Internal Medicine
DX: E78.2 Mixed hyperlipidemia (principal); I10 Essential (primary) hypertension
CPT/HCPCS: 36415; 80053; 80061; 84443; 85027

== ENCOUNTER → 2022-12-26 17:44 | Outpatient (CLI) | payer MEDICARE, SELFPAY ==
--- NOTE | 2022-12-26 17:49 | DI.RAD.S_ITS ---
PROCEDURE: XR ANKLE RT MIN 3V INDICATIONS: fall on right ankle TECHNIQUE: 3 views of the ankle were acquired. COMPARISON: None. FINDINGS: Bones: No acute fracture or dislocation. Normal alignment. Minimal degenerative changes. Plantar calcaneal spur. Soft tissues: No tibiotalar joint effusion. Achilles tendon appears normal. IMPRESSION: No acute abnormality of the right ankle. Dictated by: Elgin Mejía M.D. on 12/26/2022 at 18:56 Approved by: Elgin Mejía M.D. on 12/26/2022 at 18:57
== END ==
PROVIDERS: PCP Internal Medicine; Referring Provider Physician Assistant; Visit Provider Physician Assistant
DX: M25.571 Pain in right ankle and joints of right foot (principal)
CPT/HCPCS: 73610

== ENCOUNTER → 2023-01-01 17:08 | Outpatient (CLI) | payer MEDICARE, SELFPAY ==
--- NOTE | 2023-01-01 17:12 | DI.US.S_ITS ---
PROCEDURE: US PERIPH VENOUS LOW EXTREM RT INDICATIONS: Edema. Right calf bruising. TECHNIQUE: Real-time imaging, as well as color and pulse Doppler interrogation, were performed of the lower extremity deep veins from the inguinal ligament to the popliteal fossa. COMPARISON: None. FINDINGS: The common femoral, femoral and popliteal veins are normally compressible, and free of intraluminal thrombus. Color and pulse Doppler demonstrate normal phasic intraluminal flow. There is normal augmentation response to distal compression maneuver. Subcutaneous edema at the calf. IMPRESSION: No right lower extremity DVT. Dictated by: German Horner M.D. on 01/01/2023 at 18:37 Approved by: German Horner M.D. on 01/01/2023 at 18:38
== END ==
PROVIDERS: PCP Internal Medicine; Referring Provider Internal Medicine; Visit Provider Internal Medicine
DX: M79.89 Other specified soft tissue disorders (principal)
CPT/HCPCS: 93971

== ENCOUNTER 2023-03-23 06:34 | Day surgery (SDC) | payer MEDICARE, SELFPAY ==
[2023-03-16 15:24] VITALS: BMI 26.6
[2023-03-23] VITALS (10 sets, daily range): BP systolic 117–178; BP diastolic 61–80; PULSE 16–93; RESP 10–18; TEMP 36.1–37.1; O2SAT 95–100; BMI 26.6
--- NOTE | 2023-03-23 | PATH_ITS ---
[facility] Accession Number: [id number] No. of containers..01 Tissue . 01 Material submitted: . prostate - PROSTATE CHIPS . 01 Diagnosis: Prostate Chips (weight 11 grams): Prostatic tissue with benign stromal and glandular hyperplasia and patchy inflammation. No malignancy or epithelial atypia identified. [facility] 03/26/2023 1202 Local . 01 Electronically signed: . Eunice Irwin MD, Pathologist NPI- [id number] . 01 Gross description: . The specimen is received in formalin labeled with the patient's name, , and prostate chips, consist of multiple pink-guzman rubbery soft tissue fragments weighing 11 grams and aggregating to 5.9 x 5.5 x 1.6 cm. No discrete lesions are identified. The specimen is submitted entirely in cassettes A1-A9. ([id number]) /MRV 03/24/2023 1410 Local . 01 Pathologist provided ICD-10: R33.9 . 01 CPT . 202119 Specimen Comment: A courtesy copy of this report has been sent to [phone] Performed at: 01 [facility] [address] [place] [address] [address], [place], [place] [id number] MD Jet Harper MD Phone: [phone]
[2023-03-23] MEDS: LACTATED RINGERS 1,000 ML 21 ML IV ×2 (07:00→08:39)
--- NOTE | 2023-03-23 07:19 | SUR.OPER ---
Lithotomy on padded OR bed, head on pillow, arms secured on padded arm boards at <90 degrees abduction. Legs secured in padded yellow fins stirrups.
[2023-03-23] MEDS: CIPROFLOXACIN 400 MG/200 ML PIGGYBACK 200 MG IV (07:25)
--- NOTE | 2023-03-23 07:35 | PM.PREOP ---
Pre-operative Note Interval Note History & Physical reviewed/Exam performed by Physician: Yes Changes to H&P: No
[2023-03-23] MEDS: TRANEXAMIC ACID 1,000 MG in SODIUM CHLORIDE 0.9% 100 ML 200 MG IV (08:09)
[2023-03-23] MEDS: ACETAMINOPHEN IV 1,000 MG/100 ML VIAL 400 MG IV (08:10)
--- NOTE | 2023-03-23 09:20 | P.OP_ITS ---
Operative Date/Time/Diagnoses Date of procedure: 03/23/23 Time of procedure: 09:10 Pre-op diagnosis: 1. Urinary retention. 2. Failure of medical therapy and voiding trials. Post-op diagnosis: same Procedure & Clinicians Procedure: 1. Transurethral resection of prostate. Same procedure as scheduled: Yes Indications: 1. Urinary retention. 2. Failure of voiding trials on medical therapy. Surgeon: Apolinar Gutierrez Click Yes if Unassisted: Yes Anesthesia Type: General Operative Notes Findings: 1. Urethra-normal caliber without annular stricture or lesion. 2. External sphincter coapted with normal overlying urothelium. 3. Prostate-4 cm length with moderate lateral lobe hyperplasia and very elevated median bar. 4. Bladder-normal overlying urothelium. One to 2+ trabeculation throughout no rmal ureteral orifices bilaterally. No stone, diverticulum, or neoplasm seen. Closure Type: not applicable Specimen(s): other (Resected prostate chips. Urinalysis for reflex culture.) Applied: catheter (Twenty-two three-way hematuria catheter.) Estimated Blood Loss (mL): 5 Blood products transfused: none Procedure in detail: The patient was positioned in supine and was administered general anesthesia. He was then repositioned in semilithotomy and the lower abdomen, genitalia, and groin were then prepped and draped in sterile fashion. The resectoscope was then advanced to lower urinary tract under direct visualization with the findings as described above. The resectoscope was then refitted with the My Visual Briefia working element and resection loop. Resection of the prostate was then undertaken by 1st making incisions at the 11, and 1 positions from bladder neck to verumontanum. Resection was taken to the level of the capsule. The intervening anterior tissue was then resected. Next, resection of the left, followed by the right lateral lobes was undertaken successively from anterior to posterior. Again resection was limited to bladder neck to level of verumontanum. Depth was to the level of capsule. Finally, the high median bar was resected, again from bladder neck to veru. Intentional residual lateral apical tissue was left adjacent to the verumontanum and slightly proximally. Hemostasis was attained with electrocautery. All chips and clots were gathered mechanically and/or hydrostatically irrigated from the bladder lumen and resected prostatic fossa. The bladder was then left partially filled in the resectoscope was removed. A [address], [address] hematuria catheter was then passed more urinary tract over catheter guide. The balloon is inflated to 30 cc. Catheter was then hand irrigated with a catheter tip syringe before attaching it to normal saline continuous gravity bladder irrigation and gravity outflow. The patient was then repositioned in supine, and the catheter was secured to the inner thigh with a adhesive StatLock. The patient was then awakened, transferred to [facility], and transported to recovery in stable condition. Complications: none Post-operative Condition: stable Disposition: PACU Plan for aftercare: Admit as outpatient with a bed.
[2023-03-23 13:39] LABS: Appearance Urine UA SL CLOUDY; Bilirubin Urine UA NEGATIVE (NEGATIVE); Color Urine UA YELLOW; Glucose Urine UA NEGATIVE (Negative); Ketones Urine UA NEGATIVE (NEGATIVE); Leukocyte Esterase Urine UA 2+ (NEGATIVE); Nitrite Urine UA NEGATIVE (Negative); Occult Blood Urine UA TRACE-INTACT (Negative); Protein Urine UA NEGATIVE (Negative); Specific Gravity Urine UA 1.015 (1.000-1.035); Urobilinogen Urine UA 0.2 E.U./dL (0.2); pH Urine UA 6.5 (4.5-8.0)
[2023-03-23 14:16] LABS: Bacteria Urine Few (2-10); Culture Indicated Urine Specimen Cultured; RBC Urine 1-5/HPF (0-5/HPF); Squamous Epithelial Cell Urine None Seen (0-5/HPF); WBC Urine 1-5/HPF (0-5/HPF)
--- NOTE | 2023-03-23 16:03 | PC.NURSE ---
Patient has a 3 way dukes that is putting out strawberry colored urine with CBI running. He denies pain with only one small blood clot present. Patient has LR at 125cc/hr infusing. He is resting comfortably and visiting with his family.
[2023-03-24 03:11] VITALS: BP 146/79; PULSE 87; RESP 17; TEMP 36.6; O2SAT 98
[2023-03-24 07:00] VITALS: BP 175/88; PULSE 92; RESP 17; TEMP 36.4; O2SAT 98
--- NOTE | 2023-03-24 07:53 | PM.DS.1 ---
History of Present Illness History of Present Illness Date Patient Seen: 03/24/23 Time Patient Seen: 07:35 Chief complaint: Transurethral Resection Prostate Narrative: Patient is a 88-year-old male admitted on 03/23/2023 for schedule Transurethral resection of prostate for history of urinary retention and failure voiding trials despite medical therapy. Discharge Providers Provider Discharge Date: 03/24/23 Primary care physician: Derian Obrien MD Discharge provider: Apolinar Gutierrez MD Summary Hospital Course Discharge Diagnosis: 1. Urinary retention. 2. Failured voiding trials on medical therapy. Hospital Course: The patient was admitted in the morning of 03/23/2023 and underwent uncomplicated Transurethral resection of the prostate under general anesthesia. His postop course was essentially unremarkable in that he tolerated general diet, sample ambulate without assistance and required no postoperative analgesics. On the morning of 03/24/2023 the patient was stable for discharge. Exam Vital Signs (past 8 hours): - 03/24/23 03:11 Temperature 98 F Pulse Rate 87 Respiratory Rate 17 Blood Pressure 146/79 H Pulse Oximetry 98 Oxygen Flow Rate 0 Oxygen Delivery Method Room Air Oxygen Flow Rate 0 Narrative Exam Narrative: The patient is sitting upright in bed, awake and alert. Chest-equal and unlabored expansion bilaterally. Heart-normal sinus rhythm. Abdomen-flat, soft, nontender. Genitalia-indwelling 3 way Bryan catheter on normal saline CBI at minimal drip rate. Outflow is very light holguin without clot. Objective Labs Labs: Laboratory Results - last 24 hr 03/23/23 13:31 Urine Color Yellow Urine Appearance Sl cloudy Urine pH 6.5 Ur Specific [place] 1.015 Urine Protein Negative Urine Glucose (UA) Negative Urine Ketones Negative Urine Occult Blood Trace-intact Urine Nitrate Negative Urine Bilirubin Negative Urine Urobilinogen 0.2 Ur Leukocyte Esterase 2+ H Urine RBC 1-5/hpf Urine WBC 1-5/hpf Ur Squamous Epith Cells None seen Urine Bacteria Few (2-10) H Ur Culture Indicated? Specimen cultured [facility] Medical History BPH w urinary obs/LUTS Carpal tunnel syndrome (~2014) Chicken pox Do not resuscitate Essential hypertension Glaucoma (~2018) Hearing loss (~2018) History of melanoma Measles Mixed hyperlipidemia Mumps Primary osteoarthritis involving multiple joints Restless leg syndrome Rosacea SVT (supraventricular tachycardia) Urinary retention Surgical History Anesthesia History of hip surgery (~2012) Family History Father Cancer Mother FH: CVA (cerebrovascular accident) Sister History of heart disease Social History marital status: details: , 1 son, 2 daughters, retired [employer] number of children: 3 household members: spouse occupational status: other Smoking Status: Former smoker Tobacco: How many years used: 10 alcohol intake: current caffeine: Yes Type(s) of exercise: walking frequency: daily Discharge Assessment & Plan Assessment and Plan Assessment: 1. Stable status post Transurethral resection of prostate. 2. Indwelling Bryan catheter. 3. Pathology pending. Plan of Treatment: 1. Discharge to home today with indwelling Bryan catheter. 2. Return to [facility] 03/25/2023, for supervised voiding trial. 3. Follow-up on surgical pathology when final and available. Discharge Plan Discharge Plan Patient Disposition: Home Provider Discharge Comment: Return to the urology clinic in the early a.m. 03/25/2023 for Bryan catheter removal and voiding trial as discussed. Discharge orders & Medications Discharge Orders: Discharge (Order); Ordered 03/24/23 Ordered By: Apolinar Gutierrez Prescriptions: New cephalexin 250 mg tablet 250 mg PO TID Qty: 10 0RF Continued tamsulosin 0.4 mg capsule 0.4 mg PO BEDTIME Qty: 90 3RF amlodipine 2.5 mg tablet 2.5 mg PO DAILY Qty: 90 3RF rosuvastatin 10 mg tablet 10 mg PO DAILY Qty: 90 3RF Follow up/Referrals: Derian Obrien MD [Primary Care Provider] - Diet/Activity/Treatments Diet: Diet as Tolerated Activity: Do not lift objects heavier than 15 lb x 4 weeks. Catheter: 2-way Bryan Catheter comment: Use leg bag when out of home. Use large bag when in-home and at night. Skin/Wound/Dressing Care Report to your healthcare provider any signs of infection, such as:: chills, fever, night sweats, increased pain, unusual drainage and unusual redness Visit Report/Discharge Packet Instructions: How to Care for Your Bryan Catheter -- Male, DI for Transurethral Resection of the Prostate Stand Alone Forms: Surgery Discharge Discharge Data Primary Care Provider: Derian Obrien V Attending Provider: Apolinar Gutierrez VTE Deep Vein Thrombosis/Pulmonary Embolism Present on Admission: No
--- NOTE | 2023-03-24 09:03 | PC.NURSE ---
Pt is dressed and ready for discharge home with Family. IV has been removed. RN performed leg bag teaching and provided supplies for catheter care. Discharge med is cephalexin and Pt was instructed to take his full abx prescription as ordered. Encouraged Pt to drink plenty of fluids to prevent constipation or dehydration, to track his I/O and to follow up with Dr. Gutierrez as scheduled tomorrow. Pt out via w/c by RN to POV with family and all belongings.
--- NOTE | 2023-03-24 11:26 | CM.DANOTE ---
DCP Assessment: Patient is a 88yo M here following planned transurethral resection on 03/[address] Gutierrez PCP Camille JUAREZP Medicare and self pay BOBBIN HAULER reviewed EMR. Per chart, patient cleared to d/c today. BOBBIN HAULER entered room and introduced self and role. Patient standing up and ready to walk out the door with d/c paperwork in hand. Accompanied by spouse and daughter at bedside. Patient reports eager to d/c home. Patient owns a cane but doesn't use it. Patient is IADLs/drives at baseline. Has lots of family supports in area. Has 3 stairs into house but is confident he will manage. Plan: d/c today with family in POV. No needs from CM team. CM team will follow as needed. EVERTON Green Discharge Planning/Care Management Advanced directive, confirm from FAMILY Start: 03/23/23 11:04 Freq: Q24H Status: Discharge Protocol: Document 03/23/23 12:57 CLL (Rec: 03/23/23 13:01 CLL [id number]) Advance Directive, confirm on record Time 12:58 Person contacted pt Copy received No CM Discharge Assessment Start: 03/24/23 10:35 Freq: Status: Active Protocol: Document 03/24/23 10:36 SL (Rec: 03/24/23 11:26 [id number]) Discharge Planning Assessment Assigned Soiled Linen Distributor EVERTON August DPOA/Assigned Designee Name Mary Lou () Contact Information NA Advance Directives? Yes Advance Directives on File No History Provided By Patient,Medical Record Prior Living Arrangements House Household Members spouse Type of transporation used prior to Drives own vehicle admit Independent with ADL's Yes Is patient alert and oriented? Yes DME Already Rented / Owned Cane Barriers to Discharge No Discharge Plan Home Transportation Arrangement family in POV Referrals Initiated None needed Whiteboard Updated in Patient Room with No name and ext. # of Soiled Linen Distributor Review Status In Process Next Review Type Continued Stay Review Pre-Anesthesia Assessment Start: 03/16/23 15:24 Freq: Status: Discharge Protocol: Document 03/16/23 15:24 TC (Rec: 03/16/23 15:47 TC [id number]) Pre-Anesthesia Assessment Patient Information Reviewed Via Chart Review Consent for Planned Operative Procedure( MD to complete s) Verified H&P Completed Within 30 Days MD to complete Diagnostic Results BMP/CMP,CBC,Urinalysis Comment labs 11/02/22 IH. UA 12/27/22 Primary Care Provider Derian Obrien Medical Clearance Received Not Applicable Seen Specialist in Last 12 Months Yes Specialist Seen Urologist Primary Language Persian Preferred Language Persian Customer Facilities Supervisor Required No Height 175.26 cm Weight 81.647 kg Body Mass Index (BMI) 26.6 Hx Anesthesia Reactions Yes: pt states anesthesia made me sick Anesthesia Review Requested No Supervisor Road Administrator No alcohol intake current alcohol intake frequency 0-2 drinks per day Smoking Status Former smoker Substance Use Type does not use History of Falling (Recent or History of No ) Patient is completely paralyzed or No completely immobile Mental Status Oriented to own ability Is patient on oxygen? No Hx Sleep Apnea No CPAP/BIPAP use not prescribed Currently Taking a Beta Jese No Hx Pacemaker/ICD No Pacemaker Rep Required? No Cardiac Clearance Received Not Applicable Genitourinary Symptoms Difficulty Urinating Bladder Pattern Retention Urinary Catheter Present No Hx Urinary Self Catheterization Yes: clean intermitent cath 5 x daily Diabetes No Presence of External or Internal Medical Yes: left hip Devices Received a COVID vaccine? Yes Marital Status Lives With spouse Support System Family Patient Discharge Plan Description Return Home Health Care Proxy/Next of Kin Mary Lou (spouse) Health Care Proxy Emergency Contact Name Mary Lou (spouse) Emergency Contact Advance Directives? No Power of Medical Office Scheduler No
== END 2023-03-24 09:19 | disposition home or self-care (01) ==
LOC: OR 06:35 → AC 06:38
PROVIDERS: PCP Internal Medicine; Referring Provider Specialist; Visit Provider Specialist
PROC: 0VT08ZZ Resection of Prostate, Via Natural or Artificial Opening Endoscopic (ICD-10-PCS; CPT 52601; principal; 2023-03-23 07:45)
DX: R33.9 Retention of urine, unspecified (principal); N40.1 Benign prostatic hyperplasia with lower urinary tract symptoms; R33.8 Other retention of urine
CPT/HCPCS: 52601; 81001; 87086; J0131; J0744; J1100; J1170; J2405; J2704

== ENCOUNTER → 2023-10-08 08:53 | Outpatient (CLI) | payer MEDICARE, SELFPAY ==
[2023-03-24 08:18] VITALS: BMI 26.6
[2023-10-08 15:53] LABS: Aspartate Aminotransferase 20 IU/L (17-59); BUN Creatinine Ratio 20.3 (6-22); Blood Urea Nitrogen 16 mg/dL (9-20); Calcium 9.4 mg/dL (8.4-10.2); Carbon Dioxide 27 mmol/L (22-32); Chloride 106 mmol/L (98-107); Cholesterol 154 mg/dL (140-199); Estimated Glomerular Filt Rate > 60 mL/min (>60); Glucose 105 mg/dL (80-110); HDL Cholesterol 91 mg/dL (40-60); HEMOLYSIS < 15 (0-50); LDL Cholesterol Calculated 49 mg/dL (<100); Potassium 4.2 mmol/L (3.4-5.1); Sodium 137 mmol/L (137-145); Triglycerides 71 mg/dL (35-150)
[2023-10-08 16:26] LABS: Prostate Specific Antigen 0.718 ng/mL (0.10-4.00)
== END ==
PROVIDERS: PCP Internal Medicine; Referring Provider Internal Medicine; Visit Provider Internal Medicine
DX: N40.1 Benign prostatic hyperplasia with lower urinary tract symptoms (principal); E78.2 Mixed hyperlipidemia; N13.8 Other obstructive and reflux uropathy; I10 Essential (primary) hypertension
CPT/HCPCS: 36415; 80048; 80061; 84153; 84450

== ENCOUNTER 2024-01-04 07:54 | Day surgery (SDC) | payer MEDICARE, SELFPAY ==
[2023-03-24 08:18] VITALS: BMI 26.6
[2023-12-25 14:22] VITALS: BMI 28.1
[2024-01-04] VITALS (8 sets, daily range): BP systolic 128–155; BP diastolic 66–89; PULSE 66–82; RESP 12–17; TEMP 36.3–36.7; O2SAT 90–98; BMI 27.1
--- NOTE | 2024-01-04 | PATH_ITS ---
[facility] Accession Number: [id number] No. of containers..01 Tissue . 01 Material submitted: . prostate - PROSTATE CHIPS . 01 Diagnosis: PROSTATE CHIPS (WEIGHT LESS THAN 1 GRAM): Electrocauterized fragments of benign prostatic tissue with glandular and stromal hyperplasia. Negative for glandular atypia or malignancy. [facility] 01/06/2024 0903 Local . 01 Electronically signed: . Eunice Irwin MD, Pathologist NPI- [id number] . 01 Gross description: . Received in formalin with two identifiers and prostate chips, are multiple guzman tissue fragments admixed with a small amount of hemorrhagic material aggregating to 3.0 x 1.2 x 0.3 cm weighing less than 1 gram. Filtered and submitted entirely in cassette A1. ([id number]) /ART 01/05/2024 1026 Local . 01 Microscopic: . . . 01 Pathologist provided ICD-10: R33.9, N40.1 . 01 CPT . 031964 Specimen Comment: A courtesy copy of this report has been sent to [phone] Performed at: [address] [id number] MD Jet Harper MD Phone: [phone]
[2024-01-04] MEDS: LACTATED RINGERS 1,000 ML 21 ML IV (08:45)
[2024-01-04] MEDS: ACETAMINOPHEN IV 1,000 MG/100 ML VIAL 400 MG IV (09:06)
--- NOTE | 2024-01-04 09:28 | PM.PREOP ---
Pre-operative Note Interval Note History & Physical reviewed/Exam performed by Physician: Yes Changes to H&P: No
[2024-01-04] MEDS: CEFAZOLIN 2 GM/100 ML PREMIX 100 ML IV (10:19)
--- NOTE | 2024-01-04 10:30 | SUR.OPER ---
Lithotomy on padded OR bed, head on pillow, arms secured on padded arm boards at <90 degrees abduction. Legs secured in padded yellow fins stirrups.
[2024-01-04] MEDS: TRANEXAMIC ACID 1,000 MG in SODIUM CHLORIDE 0.9% 100 ML 200 MG IV ×2 (10:35→10:57)
--- NOTE | 2024-01-04 11:14 | PM.OP.1 ---
Operative Date/Time/Diagnoses Date of procedure: 01/04/24 Time of procedure: 11:14 Pre-op diagnosis: 1. Urinary retention Post-op diagnosis: same Procedure & Clinicians Procedure: 1. Aquablation (robotic water jet prostate ablation). 2. Transrectal ultrasound-diagnostic and guidance. 3. Cystoscopy/TURP. Same procedure as scheduled: Yes Indications: 1. Urinary retention. 2. Failure of voiding trials. Surgeon: Apolinar Gutierrez Click Yes if Unassisted: Yes Anesthesia Type: General Operative Notes Findings: 1. Urethral-normal caliber without annular stricture or lesion. 2. External sphincter-coapted with normal overlying urothelium and vascularity. 3. 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 4. Bladder-2+ trabeculation with early cellule formation. No evidence of diverticulum, stone, or neoplasm. Closure Type: not applicable Specimen(s): other (TUR chips.) Applied: catheter (Twenty-two Green[place]ic 3 way hematuria catheter to normal saline CBI.) Estimated Blood Loss (mL): 5 Blood products transfused: none Procedure in detail: Patient was positioned in supine in the lower abdomen, genitalia, and groin were then prepped and draped in sterile fashion after administration of general anesthetic. 60 cc of lubricating jelly were then instilled in the rectal vault. The transrectal ultrasound probe was then advanced into the rectal vault and positioned appropriately per protocol. Next the robotic hand piece was advanced in the lower urinary tract under direct visualization and positioned parallel and coaxial to the transrectal ultrasound probe. The water jets were then calibrated at 3 and 9 position. The transrectal ultrasound probe positioned at the mid prostate in the transverse plane at maximal dimension. Treatment depth calibration was then performed. Now, the external sphincter was identified and the lens physician just proximal to same. Next, in the mid sagittal plane, water jet position was confirmed. Initial treatment boundary parameters were then conducted in the same plane at the proximal tissue treatment edge, bladder neck, mid prostate, and external sphincter/scope tip. Specific treatment boundary parameters were then confirmed. First pass was then conducted under direct surgeon control. Re-evaluation in the mid sagittal plane was then performed. Final adjustments in the proximal tissue treatment edge, bladder neck position, and mid prostate were required and conducted as indicated. A 2nd robotic water jet past was then conducted under direct visualization in the mid sagittal plane and under direct surgeon control. Now the robotic hand piece was removed from the lower urinary tract and the resectoscope was advanced under direct visualization. Bleeding sites at the 3, and 9:00 a.m. positions were then identified and cauterized as indicated. Additional treated ?fluff? prostatic tissue was resected with the loop from the bladder neck to verumontanum. An additional small amount of tissue was resected anteriorly and hemostasis was attain there. All chips and clots were then irrigated with the assistance of the Fern evacuator. The bladder is then left partially filled and the resectoscope was removed. A 22 [place]ic three-way hematuria catheter was then advanced lower urinary tract over a catheter guide satisfactorily. The balloon was inflated to 20 cc in the catheter was irrigated clear. It was then placed to 0.9 normal saline continuous bladder irrigation. The patient was then repositioned in supine, was awakened, transferred to a gurney, and then transported recovery in stable condition. Complications: none Post-operative Condition: stable Disposition: PACU Plan for aftercare: 1. Observe in PACU. 2. Anticipate discharge with indwelling Bryan today.
--- NOTE | 2024-01-04 14:35 | SUR.PHASEII ---
Dr. Gutierrez evaluated patient and irrigation. Patient may discharge per MD and the orders were updated. Leg bag placed, patient and spouse shown how to irrigate dukes with sterile water prn clotting and how to change dukes bags.
== END 2024-01-04 13:55 | disposition home or self-care (01) ==
LOC: OR 07:55 → AC 07:56
PROVIDERS: PCP Internal Medicine; Referring Provider Specialist; Visit Provider Specialist
PROC: 0VT08ZZ Resection of Prostate, Via Natural or Artificial Opening Endoscopic (ICD-10-PCS; CPT 52597; principal; 2024-01-04 09:45)
DX: R33.9 Retention of urine, unspecified (principal); N40.1 Benign prostatic hyperplasia with lower urinary tract symptoms
CPT/HCPCS: 0421T; C2596; J0136; J0690; J1100; J2405; J2704; J3010

== ENCOUNTER → 2024-01-06 16:45 | Outpatient (CLI) | payer MEDICARE, SELFPAY ==
[2023-03-24 08:18] VITALS: BMI 26.6
== END ==
PROVIDERS: PCP Internal Medicine; Visit Provider Specialist
DX: N40.1 Benign prostatic hyperplasia with lower urinary tract symptoms (principal); N13.8 Other obstructive and reflux uropathy
CPT/HCPCS: 87086

== ENCOUNTER → 2024-01-07 09:21 | Outpatient (CLI) | payer MEDICARE, SELFPAY ==
[2023-03-24 08:18] VITALS: BMI 26.6
== END ==
PROVIDERS: PCP Internal Medicine; Visit Provider Specialist
DX: R33.9 Retention of urine, unspecified (principal)
CPT/HCPCS: 87086

== ENCOUNTER → 2024-09-27 14:18 | Outpatient (CLI) | payer MEDICARE, SELFPAY ==
[2023-03-24 08:18] VITALS: BMI 26.6
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
== END ==
PROVIDERS: PCP Internal Medicine; Referring Provider Physician Assistant; Visit Provider Physician Assistant
DX: M16.11 Unilateral primary osteoarthritis, right hip (principal); M25.559 Pain in unspecified hip; M51.369 Other intervertebral disc degeneration, lumbar region without mention of lumbar back pain or lower extremity pain; M51.379 Other intervertebral disc degeneration, lumbosacral region without mention of lumbar back pain or lower extremity pain; Z96.642 Presence of left artificial hip joint
CPT/HCPCS: 73502

== ENCOUNTER → 2024-10-17 10:54 | Outpatient (CLI) | payer MEDICARE, SELFPAY ==
[2023-03-24 08:18] VITALS: BMI 26.6
[2024-10-17 11:55] LABS: Hematocrit 41.4 % (41-53); Hemoglobin 14.3 g/dL (13.5-17.5); Mean Corpuscular HGB Conc 34.6 % (30-36); Mean Corpuscular Hemoglobin 32.1 PG (26-34); Mean Corpuscular Volume 92.7 fL (80-100); Platelet Count 204 X10^3/uL (150-400); Red Blood Cell Count 4.47 X10^6/uL (4.5-5.9); Red Cell Distribution Width 13.1 % (11.6-14.8); White Blood Cell Count 4.6 X10^3/uL (4.5-11.0)
[2024-10-17 12:24] LABS: Aspartate Aminotransferase 23 IU/L (17-59); BUN Creatinine Ratio 23.1 (6-22); Blood Urea Nitrogen 18 mg/dL (9-20); Calcium 9.7 mg/dL (8.4-10.2); Carbon Dioxide 24 mmol/L (22-32); Chloride 102 mmol/L (98-107); Cholesterol 175 mg/dL (140-199); Estimated Glomerular Filt Rate > 60 mL/min (>60); Glucose 106 mg/dL (80-110); HDL Cholesterol 99 mg/dL (40-60); HEMOLYSIS < 15 (0-50); LDL Cholesterol Calculated 63 mg/dL (<100); Potassium 4.6 mmol/L (3.4-5.1); Sodium 135 mmol/L (137-145); Triglycerides 67 mg/dL (35-150)
[2024-10-17 12:53] LABS: Prostate Specific Antigen 0.364 ng/mL (0.10-4.00)
== END ==
PROVIDERS: PCP Internal Medicine; Referring Provider Internal Medicine; Visit Provider Internal Medicine
DX: N13.8 Other obstructive and reflux uropathy (principal); E78.2 Mixed hyperlipidemia; N40.1 Benign prostatic hyperplasia with lower urinary tract symptoms; I10 Essential (primary) hypertension; I47.10 Supraventricular tachycardia, unspecified
CPT/HCPCS: 36415; 80048; 80061; 84153; 84450; 85027